=== PATIENT | male | born 1990 | race Hispanic/Latino ===

== ENCOUNTER 2018-10-03 20:51 | Emergency (ER) | payer OTHER | END 2018-10-03 21:15 | disposition home or self-care (01) | LOC: EDH 20:51 | DX: S40.012A Contusion of left shoulder, initial encounter (principal); Z90.49 Acquired absence of other specified parts of digestive tract; W51.XXXA Accidental striking against or bumped into by another person, initial encounter; Y93.89 Activity, other specified; Y92.69 Other specified industrial and construction area as the place of occurrence of the external cause; Y99.8 Other external cause status | CPT/HCPCS: 99281 ==